=== PATIENT | male | born 1965 | race African-American/Black ===

== ENCOUNTER 2018-06-02 16:06 | Emergency (ER) | payer BC ==
[2018-06-02 16:20] VITALS: BP 149/79
--- NOTE | 2018-06-02 17:55 | ER Document Report ---
HPI <KIM AMOS - Last Filed: 06/02/18 23:52> - HPI Patient complains to provider of: left eye drainage Onset: Yesterday Onset/Duration: Gradual Pain Level: Denies Context: Patient presents complaining of left eye drainage, swelling and tearing. Patient denies any change in vision. Patient denies any use of glasses or contact lenses. Patient denies any injury to the eye. Associated Symptoms: Other - Left eye swelling and tearing Exacerbated by: Denies Relieved by: Denies Similar symptoms previously: No Recently seen / treated by doctor: No - ROS ROS below otherwise negative: Yes Systems Reviewed and Negative: Yes All other systems reviewed and negative - CONSTITUTIONAL Constitutional: DENIES: Fever - EENT EENT: REPORTS: Eye problems. DENIES: Ear Pain - GASTROINTESTINAL Gastrointestinal: DENIES: Nausea, Patient vomiting - DERM Skin Color: Normal Skin Problems: None <MACY WEATHERS - Last Filed: 06/03/18 11:10> - HPI Time Seen by Provider: 06/02/18 17:24 Past Medical History - General Information source: Patient - Social History Smoking Status: Never Smoker Chew tobacco use (# tins/day): No Frequency of alcohol use: None Drug Abuse: None Lives with: Family Family History: Reviewed & Not Pertinent Patient has suicidal ideation: No Patient has homicidal ideation: No - Past Medical History Cardiac Medical History: Reports: Hx Hypertension Renal/ Medical History: Denies: Hx Peritoneal Dialysis Surgical Hx: Negative <MACY WEATHERS - Last Filed: 06/03/18 11:10> Vertical Provider Document - CONSTITUTIONAL Agree With Documented VS: Yes Exam Limitations: No Limitations General Appearance: WD/WN, No Apparent Distress - INFECTION CONTROL TRAVEL OUTSIDE OF THE [place] IN LAST 30 DAYS: No - HEENT HEENT: PERRLA Notes: Extraocular movements intact, patient with tearing to left eye and chemosis to the left eye from the 8:00 to 4 o'clock position. No corneal abrasion, foreign body, ulcer or dendrite. - NECK Neck: Normal Inspection - RESPIRATORY Respiratory: Breath Sounds Normal, No Respiratory Distress - CARDIOVASCULAR Cardiovascular: Regular Rate, Regular Rhythm - MUSCULOSKELETAL/EXTREMETIES Musculoskeletal/Extremeties: MAEW - NEURO Level of Consciousness: Awake, Alert, Appropriate Motor/Sensory: No Motor Deficit - DERM Integumentary: Warm, Dry, No Rash <MACY WEATHERS - Last Filed: 06/03/18 11:10> Course - Re-evaluation Re-evalutation: 06/02/18 23:52 Seen and examined in conjunction with the nurse practitioner Rosa Maria Geiger, this patient who complains of swelling and watery left eye denies any trauma, denies any pain, does not have any pain with extraocular movements. No suggestion of orbital cellulitis. He does have significant chemosis on slit-lamp examination, no floor seen uptake, no cell and flare in the anterior chamber - Vital Signs Vital signs: Temp Pulse Resp BP Pulse Ox 98.4 F 81 16 149/79 H 99 06/02/18 16:19 06/02/18 16:19 06/02/18 16:19 06/02/18 16:19 06/02/18 16:19 <KIM AMOS - Last Filed: 06/02/18 23:52> - Re-evaluation Re-evalutation: 06/02/18 17:[address] Amos who agrees to come and evaluate patient. 06/02/18 18:29 Dr. Amos to bedside for slit-lamp examination. Recommends oral antihistamine and antibiotic drops at this time. Agrees with plan for antihistamine eyedrops as well. Recommend outpatient follow-up with shift coordinator for recheck. 06/02/18 18:30 - Vital Signs Vital signs: Temp Pulse Resp BP Pulse Ox 98.4 F 81 16 149/79 H 99 06/02/18 16:19 06/02/18 16:19 06/02/18 16:19 06/02/18 16:19 06/02/18 16:19 <MACY WEATHERS - Last Filed: 06/03/18 11:10> Discharge <KIM AMOS - Last Filed: 06/02/18 23:52> <MACY WEATHERS - Last Filed: 06/03/18 11:10> - Discharge Clinical Impression: Chemosis of conjunctiva Qualifiers: Laterality: left Qualified Code(s): H11.422 - Conjunctival edema, left eye Condition: Stable Disposition: HOME, SELF-CARE Instructions: Antibiotic Therapy ([facility]), Conjunctivitis, Allergic, Eyedrop Use ([facility]) Additional Instructions: Return immediately for any new or worsening symptoms Followup with your primary care provider, call tomorrow to make a followup appointment Follow-up with shift coordinator for further evaluation. Call tomorrow for an appointment Prescriptions: Cetirizine HCl [Zyrtec 10 mg Tablet] 1 tab PO DAILY #30 tablet Olopatadine HCl [Pataday] 1 drop OP DAILY #2.5 ml Polymyxin B Sulfate/Tmp [Polytrim Oph Soln 10 ml] 1 drop LFT_EYE ASDIR #1 bottle Forms: Return to Work Referrals: [facility] [Provider Group] - Follow up as needed [facility] [Provider Group] - Follow up tomorrow
[2018-06-02] MEDS ORDERED: CETIRIZINE 10 MG TABLET PO ONE (18:29)
== END 2018-06-02 18:41 | disposition home or self-care (01) ==
LOC: ER 16:06
DX: H11.422 Conjunctival edema, left eye (principal); I10 Essential (primary) hypertension
CPT/HCPCS: 99282